=== PATIENT | male | born 1990 | race Caucasian/White ===

== ENCOUNTER 2017-11-10 10:41 | Emergency (ER) | payer OTHER ==
[~2017-11-10] VITALS: Ht 177.8 cm; Wt 86.0 kg
[~2017-11-10 10:41] MED LIST: CLEO300C2 PO; DARV PO; DOXY100T PO; Z.0.NO CURRENT MEDS
[2017-11-10 10:42] VITALS: BP 163/88; PULSE 77; RESP 16; TEMP 97.4; O2SAT 99
--- NOTE | 2017-11-10 11:19 | PD ---
HPI Chief Complaint: Pain: Acute or Chronic Time Seen by Provider: 10:58 Travel History International Travel<30 days: No Contact w/Intl Traveler<30days: No Traveled to known affect area: No History of Present Illness HPI This 27-year-old male is complaining of pain in his feet. He was walking yesterday. He was in flip-flops. He started having pain on the lateral aspect of his right foot. The pain was quite severe. He then started having pain on the lateral aspect of his left foot. He does not have the pain was fairly area and there is no history of injury. There has not been any fever or chills. He has not had pain like this before. Family members have gout. PFSH Past Medical History Diminished Hearing: No Kidney Stones: Yes Tetanus Vaccination: Unknown Influenza Vaccination: No Social History Alcohol Use: Yes (OCCASSIONAL) Tobacco Use: No Substance Use: No Allergies-Medications (Allergen,Severity, Reaction): Coded Allergies: Sulfa (Sulfonamide Antibiotics) (Verified Allergy, Unknown, "WAS LONG TIME AGO", 11/10/17) Reported Meds & Prescriptions Reported Meds & Active Scripts Active Review of Systems Except as stated in HPI: all other systems reviewed are Neg General / Constitutional: No: Fever, Chills Eyes: No: Diploplia Cardiovascular: No: Chest Pain or Discomfort, Palpitations Respiratory: No: Shortness of Breath Gastrointestinal: No: Vomiting, Diarrhea Genitourinary: No: Frequency Musculoskeletal: Positive: Myalgias, Pain Skin: No Rash, No Itching Neurologic: No: Weakness, Dizziness Hematologic/Lymphatic: No: Easy Bruising Physical Exam Narrative GENERAL: Well-developed male SKIN: Focused skin assessment warm/dry. HEAD: Atraumatic. Normocephalic. EYES: Pupils equal and round. No scleral icterus. No injection or drainage. ENT: No nasal bleeding or discharge. Mucous membranes pink and moist. NECK: Trachea midline. No JVD. MUSCULOSKELETAL: No obvious deformities. No clubbing. No cyanosis. No edema. Examination of the feet does not reveal any swelling or erythema. The skin is intact bilaterally. There are good dorsalis pedal and posterior tibial pulses bilaterally. There is no swelling noted. The site of pain is the base of the fifth metatarsal. NEUROLOGICAL: Awake and alert. No obvious cranial nerve deficits. Motor grossly within normal limits. Normal speech. PSYCHIATRIC: Appropriate mood and affect; insight and judgment normal. Data Data Last Documented VS Vital Signs Date Time Temp Pulse Resp B/P (MAP) Pulse Ox O2 Delivery O2 Flow Rate FiO2 11/10/17 10:42 97.4 77 16 163/88 (113) 99 Orders Orders Foot, Complete ([id number]) (11/10/17 11:12) MDM Medical Decision Making Medical Screen Exam Complete: Yes Emergency Medical Condition: Yes Medical Record Reviewed: Yes Differential Diagnosis Differential includes arthritis, neuropathy, stress fracture Narrative Course Exam is negative for evidence of arthritis or infection. I have ordered an x- ray of the right foot which is the foot which is more severely affected. When I first saw the patient he was not having the pain. I did ask him to walk to trigger the pain. She walked just a little bit and started having the pain. Repeat examination is essentially unchanged. X-ray of the foot is negative. I suspect his pain is secondary to prolonged use of unpadded shoes. He is stable for discharge Diagnosis Primary Impression: Bilateral foot pain Additional Instructions: Take ibuprofen or Aleve for pain, use padded shoes Disposition: 01 DISCHARGE HOME Condition: Stable Jeremiah Red MD Nov 10, 2017 11:19
--- NOTE | 2017-11-10 11:34 | RADRPT ---
EXAM DATE/TIME: 11/10/2017 11:17 [facility] COMPARISON: No previous studies available for comparison. INDICATIONS : Right foot pain with no known injury MEDICAL HISTORY : None. SURGICAL HISTORY : None. ENCOUNTER: Initial ACUITY: 2 days PAIN SCORE: 4/10 LOCATION: Right lateral foot FINDINGS: Three view examination of the right foot demonstrates no soft tissue swelling, dislocation, or fractu re. The tarsal bones appear intact. The interphalangeal and metatarsophalangeal joints are intact. The calcaneus is intact. Bony mineralization is normal. CONCLUSION: 1. Unremarkable radiographs of the right foot. No fracture, bony destruction or soft tissue abnormali ty. Moses De Leon MD on November 10, 2017 at 11:25 Board Certified Radiologist. This report was verified electronically.
== END 2017-11-10 11:56 | disposition home or self-care (01) ==
LOC: PHED 10:41
DX: M79.672 Pain in left foot (principal); M79.671 Pain in right foot
CPT/HCPCS: 73630; 99283